=== PATIENT | male | born 1955 | race Caucasian/White ===

== ENCOUNTER → 2016-04-02 | Outpatient (CLI) | payer BC ==
[~2016-04-02] MED LIST: ADVIL200 MG PO; CEPHALEXIN500 M1 PO; KLONOPIN 1MG1 MG PO; LAMICTAL 25MG T25 MG PO; NORCO 325 MG-51 TAB PO; PERCOCET 325 MG1 TA2 PO; STIOLTO RESPIMAT4 GM IH; SUDAFED 24-HOU240 MG PO; VRAYLAR1.5 MG PO
== END ==
LOC: BHSO 13:14
DX: F33.1 Major depressive disorder, recurrent, moderate (principal)

== ENCOUNTER → 2016-05-27 | Outpatient (CLI) | payer BC | LOC: BHSO 13:13 | DX: F31.81 Bipolar II disorder (principal) ==

== ENCOUNTER → 2016-07-09 | Outpatient (CLI) | payer BC | LOC: BHSO 14:42 | DX: F33.1 Major depressive disorder, recurrent, moderate (principal) ==

== ENCOUNTER → 2016-08-21 | Outpatient (CLI) | payer BC | LOC: BHSO 13:50 | DX: F31.73 Bipolar disorder, in partial remission, most recent episode manic (principal) ==

== ENCOUNTER → 2016-10-15 | Outpatient (CLI) | payer BC | LOC: BHSO 13:52 | DX: F31.73 Bipolar disorder, in partial remission, most recent episode manic (principal) ==

== ENCOUNTER → 2016-11-26 | Outpatient (CLI) | payer BC | LOC: BHSO 13:49 | DX: F31.73 Bipolar disorder, in partial remission, most recent episode manic (principal) ==

== ENCOUNTER → 2017-01-20 | Outpatient (CLI) | payer BC | LOC: BHSO 12:56 | DX: F31.73 Bipolar disorder, in partial remission, most recent episode manic (principal) ==

== ENCOUNTER → 2017-03-06 | Outpatient (CLI) | payer BC | LOC: BHSO 13:37 | DX: F33.1 Major depressive disorder, recurrent, moderate (principal) | CPT/HCPCS: G0463 ==

== ENCOUNTER → 2017-05-08 | Outpatient (CLI) | payer BC | LOC: BHSO 13:19 | DX: F31.81 Bipolar II disorder (principal) | CPT/HCPCS: G0463 ==

== ENCOUNTER → 2017-08-25 | Outpatient (CLI) | payer BC | LOC: BHSO 09:29 | DX: F31.81 Bipolar II disorder (principal) ==

== ENCOUNTER → 2018-02-15 | Outpatient (CLI) | payer BC | LOC: BHSO 11:02 | DX: F31.81 Bipolar II disorder (principal) | CPT/HCPCS: G0463 ==

== ENCOUNTER → 2018-08-11 | Outpatient (CLI) | payer BC | LOC: BHSO 12:59 | DX: F31.81 Bipolar II disorder (principal) | CPT/HCPCS: G0463 ==

== ENCOUNTER → 2019-02-03 | Outpatient (CLI) | payer BC | LOC: BHSO 13:45 | DX: F31.81 Bipolar II disorder (principal) | CPT/HCPCS: G0463 ==

== ENCOUNTER → 2019-08-03 | Outpatient (CLI) | payer MEDICARE | LOC: BHSO 13:15 | DX: F31.81 Bipolar II disorder (principal) | CPT/HCPCS: G0463 ==

== ENCOUNTER → 2019-11-30 | Outpatient (CLI) | payer MEDICARE | LOC: COL.RAD 11-29 13:30 | DX: Z13.6 Encounter for screening for cardiovascular disorders (principal); F17.210 Nicotine dependence, cigarettes, uncomplicated ==

== ENCOUNTER 2021-09-13 05:39 | Inpatient (IN) | payer MEDICARE, OTHER ==
[2021-09-13] VITALS (792 sets, daily range): BP systolic 111–146; BP diastolic 76–90; PULSE 78–105; TEMP 98–99; O2SAT 74–100
[~2021-09-13] VITALS: Ht 188 cm; Wt 70.0 kg
[2021-09-13 05:56] LABS: HEMATOCRIT 43.8 % (42.0-52.0); HEMOGLOBIN 14.9 g/dl (13.5-18.0); MEAN CELL VOLUME 91 fl (80.0-100.0); MEAN CORPUSCULAR HEMOGLOBIN 31 pg (27-31); MEAN CORPUSCULAR HGB CONC 34 g/dl (33.0-37.0); MEAN PLATELET VOLUME 9.3 fl (7.4-10.4); PLATELET COUNT 329 K/mm3 (130-400); RED BLOOD COUNT 4.82 M/mm3 (4.20-5.60); REDCELL DISTRIBUTION WIDTH-CV 12.2 % (11.5-14.5)
[2021-09-13 06:23] LABS: ALBUMIN 3.6 gm/dL (3.4-4.8); ANION GAP 14 mmol/L (7-16); BLOOD UREA NITROGEN 12 mg/dL (8-26); CALCIUM 9.6 mg/dL (8.4-10.2); CARBON DIOXIDE 26 mmol/L (23-31); CHLORIDE 98 mmol/L (98-107); CREATININE, serum 0.73 mg/dL (0.72-1.25); GLUCOSE 146 mg/dL (70-99); POTASSIUM 4.5 mmol/L (3.5-4.5); SODIUM 138 mmol/L (136-145)
[2021-09-13 06:26] LABS: BAND 32 % (0-10); LYMPHOCYTE 4 % (20.0-51.0); NEUTROPHILS 49 % (42.0-75.2); PLATELET ESTIMATE NORMAL (NORMAL)
[2021-09-13 06:29] LABS: TROPONIN-I < 0.010 ng/mL (0.00-0.033)
[2021-09-13 06:40] LABS: ARTERIAL BLD GAS O2 SATURATION 99.3 % (92-100); ARTERIAL BLD GAS TCO2 CT 26.9; ARTERIAL BLOOD GAS BASE EXCESS -3.7 (-2-2); ARTERIAL BLOOD GAS PCO2 61.3 mmHg (35-45); ARTERIAL BLOOD GAS pH 7.23 (7.35-7.45)
--- NOTE | 2021-09-13 10:34 | NUR ---
Pt admitted to ICU from ER for COPD. Pt is Axox4. PT is on bipap at 40%. Pt's VSS. Yasmeen bedside. and notified of arrival. Pt and oriented to room and floor. Pt given call light and instructed to call with all needs. RT called for abg and Suyapa called for PICC line.
[2021-09-13 11:08] LABS: ARTERIAL BLD GAS O2 SATURATION 97.9 % (92-100); ARTERIAL BLOOD GAS BASE EXCESS -0.9 (-2-2); ARTERIAL BLOOD GAS HCO3 25.5 meq/L (22-26); ARTERIAL BLOOD GAS PCO2 49.1 mmHg (35-45); ARTERIAL BLOOD GAS pH 7.33 (7.35-7.45)
[2021-09-13] MEDS ORDERED: LIPITOR 40MG TA40 MG PO (11:40)
[2021-09-13] MEDS ORDERED: ZYPREXA 5MG5 MG PO (11:41)
[2021-09-13] MEDS ORDERED: LEXAPRO20 MG PO (11:41)
[2021-09-13 21:02] LABS: ARTERIAL BLD GAS O2 SATURATION 78.1 % (92-100); ARTERIAL BLD GAS TCO2 CT 24.7; ARTERIAL BLOOD GAS BASE EXCESS -2.1 (-2-2); ARTERIAL BLOOD GAS HCO3 23.4 meq/L (22-26); ARTERIAL BLOOD GAS PCO2 42.9 mmHg (35-45); ARTERIAL BLOOD GAS pH 7.36 (7.35-7.45)
[2021-09-13 21:03] LABS: ARTERIAL BLOOD GAS PO2 34.8 mmHg (80-100)
[2021-09-14] VITALS (858 sets, daily range): BP systolic 127–141; BP diastolic 68–80; PULSE 82–110; TEMP 97.8–98.6; O2SAT 77–100
[2021-09-14 05:10] LABS: ARTERIAL BLD GAS O2 SATURATION 95.5 % (92-100); ARTERIAL BLD GAS TCO2 CT 26.8; ARTERIAL BLOOD GAS BASE EXCESS 0.1 (-2-2); ARTERIAL BLOOD GAS HCO3 25.4 meq/L (22-26); ARTERIAL BLOOD GAS PCO2 44.1 mmHg (35-45); ARTERIAL BLOOD GAS PO2 74.5 mmHg (80-100); ARTERIAL BLOOD GAS pH 7.38 (7.35-7.45)
[2021-09-14 06:06] LABS: BASO # 0.1 K/mm3 (0.0-0.2); BASO % 0.5 % (0.0-2.0); GRAN # 8.8 K/mm3 (1.4-6.5); GRAN % 87.6 % (42.2-75.2); LYMPH # 0.6 K/mm3 (1.2-3.4); LYMPH % 5.6 % (20.0-51.0); MEAN CELL VOLUME 90 fl (80.0-100.0); MEAN CORPUSCULAR HGB CONC 34 g/dl (33.0-37.0); MEAN PLATELET VOLUME 9.4 fl (7.4-10.4); MONO # 0.6 K/mm3 (0.1-0.6); PLATELET COUNT 299 K/mm3 (130-400); RED BLOOD COUNT 3.98 M/mm3 (4.20-5.60); REDCELL DISTRIBUTION WIDTH-CV 12.3 % (11.5-14.5)
[2021-09-14 06:08] LABS: C-REACTIVE PROTEIN 13.48 mg/dL (0.00-0.50); CREATININE, serum 0.61 mg/dL (0.72-1.25); POTASSIUM 3.9 mmol/L (3.5-4.5)
[2021-09-14 06:21] LABS: HEMATOCRIT 35.7 % (42.0-52.0); HEMOGLOBIN 12.2 g/dl (13.5-18.0); MEAN CORPUSCULAR HEMOGLOBIN 31 pg (27-31)
[2021-09-14 06:24] LABS: BAND 14 % (0-10); LYMPHOCYTE 6 % (20.0-51.0); NEUTROPHILS 76 % (42.0-75.2); PLATELET ESTIMATE NORMAL (NORMAL)
--- NOTE | 2021-09-14 12:02 | NUR ---
SW informed that patient would be moving to medical floor upon completing intake. Patient states that he lives in [facility] with his Yasmeen Bey [phone]. Patient provides he does not utilize DME currently and is independent with ADL's. Patient states that he does not utilize any HH services at this time, PCP is Dr. Garrison, and pharmacy is [facility]. Patient states that his is documented as his DPOA/HC. Patient plans to return to his home upon DC. SW will continue to follow. DC plan: home
--- NOTE | 2021-09-14 12:40 | NUR ---
Chaplain solares and offered support with patient.
--- NOTE | 2021-09-14 14:48 | NUR ---
1448 PATIENT TRANSFERED TO FLOOR. PATIENT ALERT AND ORIENTED. PATIENT VITAL ARE STABLE AND CHARTED. NURSE AWARE OF PATIENTS ARRIVAL TO THE UNIT
[2021-09-15 01:07] VITALS: BP 128/74; PULSE 97; TEMP 97.8
[2021-09-15 04:58] VITALS: BP 125/64; PULSE 98; TEMP 97.6
[2021-09-15 07:38] VITALS: BP 101/62; PULSE 102; TEMP 97.4
[2021-09-15 08:52] LABS: HEMATOCRIT 37.7 % (42.0-52.0); HEMOGLOBIN 12.8 g/dl (13.5-18.0); MEAN CELL VOLUME 90 fl (80.0-100.0); MEAN CORPUSCULAR HEMOGLOBIN 31 pg (27-31); MEAN CORPUSCULAR HGB CONC 34 g/dl (33.0-37.0); MEAN PLATELET VOLUME 8.9 fl (7.4-10.4); PLATELET COUNT 369 K/mm3 (130-400); RED BLOOD COUNT 4.17 M/mm3 (4.20-5.60); REDCELL DISTRIBUTION WIDTH-CV 12.5 % (11.5-14.5)
[2021-09-15 09:06] LABS: CREATININE, serum 0.66 mg/dL (0.72-1.25); POTASSIUM 3.7 mmol/L (3.5-4.5)
[2021-09-15 09:07] LABS: BAND 17 % (0-10); LYMPHOCYTE 5 % (20.0-51.0); NEUTROPHILS 75 % (42.0-75.2); PLATELET ESTIMATE NORMAL (NORMAL)
[2021-09-15 13:25] VITALS: BP 132/71; PULSE 102; TEMP 97.8
[2021-09-15 17:02] VITALS: BP 129/76; PULSE 93; TEMP 97.7
[2021-09-15 20:08] VITALS: BP 130/75; PULSE 103; TEMP 98.1
--- NOTE | 2021-09-15 23:32 | NUR ---
Patient assessed around 2114. Alert and oriented. Denies pain and discomfort. On oxygen at 2 L/min via NC. Continues on IV ABX and steroids per orders. Voices no questions, needs, or concerns at this time. In bed with call light within reach.
[2021-09-16 00:05] VITALS: BP 138/78; PULSE 103; TEMP 98.4
[2021-09-16 04:46] VITALS: BP 111/63; PULSE 90; TEMP 98
--- NOTE | 2021-09-16 05:33 | NUR ---
Patient refused BIPAP during the night. On oyxgen at 2 L/min via NC. Denies pain and discomfort. Continues on IV ABX and Solumedrol per ordes. Voices no questions, needs, or concerns at this time. In bed with call light within reach.
[2021-09-16 06:47] LABS: BASO % 0.2 % (0.0-2.0); GRAN # 12.7 K/mm3 (1.4-6.5); GRAN % 87.6 % (42.2-75.2); HEMOGLOBIN 12.2 g/dl (13.5-18.0); LYMPH % 7.1 % (20.0-51.0); MEAN CELL VOLUME 93 fl (80.0-100.0); MEAN CORPUSCULAR HEMOGLOBIN 31 pg (27-31); MEAN CORPUSCULAR HGB CONC 33 g/dl (33.0-37.0); MONO # 0.6 K/mm3 (0.1-0.6); MONO % 4.1 % (1.7-9.3); PLATELET COUNT 379 K/mm3 (130-400); RED BLOOD COUNT 3.96 M/mm3 (4.20-5.60); REDCELL DISTRIBUTION WIDTH-CV 12.4 % (11.5-14.5)
[2021-09-16 06:51] LABS: HEMATOCRIT 36.8 % (42.0-52.0)
[2021-09-16 07:09] LABS: CALCIUM 8.8 mg/dL (8.4-10.2); CREATININE, serum 0.65 mg/dL (0.72-1.25); POTASSIUM 3.7 mmol/L (3.5-4.5)
[2021-09-16 07:26] LABS: ARTERIAL BLD GAS O2 SATURATION 96.4 % (92-100); ARTERIAL BLOOD GAS BASE EXCESS 5.6 (-2-2); ARTERIAL BLOOD GAS HCO3 31.1 meq/L (22-26); ARTERIAL BLOOD GAS PCO2 48.8 mmHg (35-45); ARTERIAL BLOOD GAS PO2 76.9 mmHg (80-100); ARTERIAL BLOOD GAS pH 7.42 (7.35-7.45)
[2021-09-16 07:55] VITALS: BP 129/65; PULSE 100; TEMP 97.5
[2021-09-16] MEDS ORDERED: DOXYCYCLINE 10100 MG PO (08:57)
[2021-09-16] MEDS ORDERED: PREDNISONE10 MG PO (08:59)
--- NOTE | 2021-09-16 10:01 | NUR ---
Supervisor Seaming met with patient who will discharge home today. SW presented IM form to patient who verbalized understanding then provided signature. SW placed form in chart and provided copy to patient.
--- NOTE | 2021-09-16 11:24 | NUR ---
PATIENT PICC REMOVED, HE WAS RESTING FOR 30+ MINUTES. DRESSIG CHECKED, RENAE BLEEDING. PATIENT AND HIS GIVEN ALL DISCHARGE INSTRUCTIONS AND EDUCATION. PAPERS SIGNED AND IN CHART. PATIENT TAKEN DOWNSTAIRS VIA WHEELCHAIR WITH , ATTACHTED TO THEIR HOME 02 TANK. PATIENT LEFT IN STABLE CONDITION.
== END 2021-09-16 11:15 | disposition home or self-care (01) | DRG 189 ==
LOC: COL.ER 05:39 → ICU 07:13 → MEDICAL 09-14 15:00
PROVIDERS: Emergency Medicine; Family Medicine; Internal Medicine Pulmonary Disease; ADMIT Internal Medicine
PROC: 02HV33Z Insertion of Infusion Device into Superior Vena Cava, Percutaneous Approach (ICD-10-PCS; principal; 2021-09-13)
DX: J96.21 Acute and chronic respiratory failure with hypoxia (principal); G93.41 Metabolic encephalopathy; J44.1 Chronic obstructive pulmonary disease with (acute) exacerbation; E44.0 Moderate protein-calorie malnutrition; Z68.1 Body mass index [BMI] 19.9 or less, adult; Z66 Do not resuscitate; J96.22 Acute and chronic respiratory failure with hypercapnia; F31.9 Bipolar disorder, unspecified; F17.210 Nicotine dependence, cigarettes, uncomplicated; Z20.822 Contact with and (suspected) exposure to COVID-19; D72.829 Elevated white blood cell count, unspecified; T38.0X5A Adverse effect of glucocorticoids and synthetic analogues, initial encounter; Y92.238 Other place in hospital as the place of occurrence of the external cause; Z90.89 Acquired absence of other organs
CPT/HCPCS: C1751; C9113; J0456; J0692; J1650; J2060; J2920; J7030; J7050